=== PATIENT | male | born 1985 | race Caucasian/White ===

== ENCOUNTER 2017-01-26 17:54 | Emergency (ER) | payer BC ==
[2017-01-26 18:01] VITALS: BP 135/94; PULSE 90; RESP 20; TEMP 98.8
--- NOTE | 2017-01-26 18:24 | ED ---
Skin/Abscess/FB HPI - General Chief complaint: Skin/Abscess/Foreign Body Stated complaint: abcess Time Seen by Provider: 01/26/17 18:12 Source: patient Mode of arrival: ambulatory Limitations: no limitations - History of Present Illness Initial comments: 31-year-old male patient presents to emergency department today for evaluation of a lesion to his back. Patient states that he believes he was bit by something yesterday. Patient states that today she has been irritating the site , he states it is itchy, but denies any drainage. Patient states that he did find 2 ticks on himself a couple weeks ago and was concerned that possibly he had another one. Patient denies any fever, chills, neck pain, back pain, nausea , vomiting, dizziness or weakness. Patient denies trying anything for the discomfort. - Related Data Allergies Allergy/AdvReac Type Severity Reaction Status Date / Time No Known Allergies Allergy Verified 01/26/17 18:00 Review of Systems ROS Statement: Those systems with pertinent positive or pertinent negative responses have been documented in the HPI. ROS Other: All systems not noted in ROS Statement are negative. Past Medical History Past Medical History: No Reported History History of Any Multi-Drug Resistant Organisms: None Reported Past Surgical History: No Surgical Hx Reported Past Psychological History: No Psychological Hx Reported Smoking Status: Current every day smoker Past Alcohol Use History: Occasional Past Drug Use History: None Reported General Exam Limitations: no limitations General appearance: alert, in no apparent distress Head exam: Present: atraumatic, normocephalic, normal inspection Eye exam: Present: normal appearance ENT exam: Present: normal exam, mucous membranes moist Neck exam: Present: normal inspection. Absent: tenderness, meningismus, lymphadenopathy Respiratory exam: Present: normal lung sounds bilaterally. Absent: respiratory distress, wheezes, rales, rhonchi, stridor Cardiovascular Exam: Present: regular rate, normal rhythm, normal heart sounds. Absent: systolic murmur, diastolic murmur, rubs, gallop, clicks GI/Abdominal exam: Present: soft, normal bowel sounds. Absent: distended, tenderness, guarding, rebound, rigid Extremities exam: Present: normal inspection, full ROM, normal capillary refill. Absent: tenderness, pedal edema, joint swelling, calf tenderness Back exam: Present: full ROM, rash noted (Single circular erythematous nodule about 2 cm across. Does have a center pinpoint that could be a bite site.). Absent: tenderness Neurological exam: Present: alert, oriented X3, CN II-XII intact Psychiatric exam: Present: normal affect, normal mood Skin exam: Present: warm, dry, intact, normal color, rash (As noted on back exam ) Course Vital Signs 01/26/17 17:58 Temperature 98.8 F Pulse Rate 90 Respiratory 20 Rate Blood Pressure 135/94 O2 Sat by Pulse 99 Oximetry Medical Decision Making - Medical Decision Making 31-year-old male patient presents to emergency department for evaluation of a lesion to his back. Psych appears to be related to an insect bite or sting. No stinger identified on physical exam. Site is warm to touch and erythematous. Recommended [id number] hydrocortisone cream to be applied to site. However I did inform patient of site symptoms begin to worsen, change , or he develops any fever or chills that he is to return for further evaluation. Patient instructed to follow up with his primary care physician in one to 2 days for recheck. Patient verbalized understanding and agreed to this plan. Disposition Clinical Impression: Insect bite Disposition: HOME SELF-CARE Condition: Good Instructions: Insect Bite or Sting (ED) Additional Instructions: Apply [id number] hydrocortisone cream. Take ibuprofen for any discomfort. Return for any new, worsening, or concerning symptoms. Referrals: None,Stated [Primary Care Provider] - 1-2 days Time of Disposition: 18:24
== END 2017-01-26 18:33 | disposition home or self-care (01) ==
LOC: EC 17:54
DX: S20.461A Insect bite (nonvenomous) of right back wall of thorax, initial encounter (principal); F17.200 Nicotine dependence, unspecified, uncomplicated; W57.XXXA Bitten or stung by nonvenomous insect and other nonvenomous arthropods, initial encounter
CPT/HCPCS: 99282

== ENCOUNTER → 2023-11-10 | Outpatient (CLI) | payer OTHER ==
--- NOTE | 2023-11-10 12:00 | XR ---
EXAMINATION TYPE: XR knee complete LT DATE OF EXAM: 11/10/2023 11:56 AM CLINICAL INDICATION:Male, 38 years old with history of S83.92XA SPRAIN OF UNSPECIFIED SITE OF LEFT KN EE,; [facility] COMPARISON: None. TECHNIQUE: XR knee complete LT; examined in Frontal, lateral and oblique projections. FINDINGS: No evidence of any acute osseous pathology, soft tissue swelling, or joint effusion is no damaris. Tricompartmental osteophyte formation involving the femoral condyles, tibial plateau and patella . Mild joint space narrowing. IMPRESSION: 1. No acute osseous pathology. 2. Mild tricompartmental osteoarthritic changes.
== END | disposition home or self-care (01) ==
LOC: RADXRMAIN 11:32
PROVIDERS: ATTEND Emergency Medicine
DX: M17.12 Unilateral primary osteoarthritis, left knee (principal); S83.92XA Sprain of unspecified site of left knee, initial encounter